=== PATIENT | male | born 1965 | race Caucasian/White ===

== ENCOUNTER 2018-02-12 14:09 | Emergency (ER) | payer BC ==
[2018-02-12] MEDS ORDERED: Tetan/Diph/Pertus SYR(Tdap)* 0.5 ML SYR(BOOSTRIX) use SYR IM ONE (14:24)
[2018-02-12] MEDS ORDERED: Lidocaine 2% EPI 1:200000 MPF*10-20 ML VIAL INJ ONE (14:31)
[2018-02-12] MEDS ORDERED: Bupivacaine 0.5% W/EPI SDV* 30 ML VIAL INJ ONE (14:31)
--- NOTE | 2018-02-12 14:34 | ED ---
Upper Extremity Pain - HPI Summary HPI Summary: The pt is a 52 year old M presenting to the ED with a chief complaint of a finger laceration. He and his were stacking wood and as she was throwing him a new piece of wood, he reached down and the wood fell on his finger. The pt has no other health issues. - History of Current Complaint Chief Complaint: EDLacSutureRecheck Stated Complaint: LT RING FINGER INJURY Time Seen by Provider: 02/12/18 14:27 Hx Obtained From: Patient Mechanism Of Injury: Blunt Trauma - wood log Onset/Duration: Started Hours Ago Timing: Constant Severity Initially: Moderate Severity Currently: Moderate Pain Location: Finger - L ring finger Character: Throbbing, Burning Aggravating Factor(s): Nothing Alleviating Factor(s): Nothing Associated Signs & Symptoms: Positive: Swelling, Redness, Other - bleeding - Allergies/Home Medications Allergies/Adverse Reactions: Allergies Allergy/AdvReac Type Severity Reaction Status Date / Time MS Penicillins [Penicillins] Allergy Nausea Verified 09/18/14 15:21 PMH/Surg Hx/FS Hx/Imm Hx Previously Healthy: Yes Endocrine/Hematology History: Denies: Hx Diabetes, Hx Thyroid Disease Cardiovascular History: Denies: Hx Hypertension Respiratory History: Denies: Hx Asthma, Hx Chronic Obstructive Pulmonary Disease (COPD) Infectious Disease History: No Infectious Disease History: Denies: Hx Hepatitis, Hx Human Immunodeficiency Virus (HIV), Traveled Outside the [place] in Last 30 Days - Family History Known Family History: Negative: Renal Disease - Social History Alcohol Use: Daily Substance Use Type: Reports: None Smoking Status (MU): Never Smoked Tobacco Review of Systems Negative: Fever Positive: Myalgia - L ring finger Positive: Other - bleeding L ring finger All Other Systems Reviewed And Are Negative: Yes Physical Exam - Summary Physical Exam Summary: Appearance: Well-appearing, Well-nourished, lying in bed comfortable Skin: L ring finger laceration at nail matrix, the matrix appears to be intact. Moderate sublingual hematoma, minimal swelling, tenderness of the distal phalanx. Eyes: sclera anicteric, no conjunctival pallor ENT: mucous membranes moist Neck: deferred Respiratory: No signs of respiratory distress Cardiovascular: Appears well perfused, pulses are nml Abdomen: deferred Musculoskeletal: Moving all 4 extremities without obvious discomfort Neurological: Awake and alert, mentation is normal, speech is fluent and appropriate Psychiatric: affect is normal, does not appear anxious or depressed Triage Information Reviewed: Yes Vital Signs On Initial Exam: Initial Vitals Temp Pulse Resp BP Pulse Ox 97.9 F 80 16 145/73 99 02/12/18 14:16 02/12/18 14:16 02/12/18 14:16 02/12/18 14:16 02/12/18 14:16 Vital Signs Reviewed: Yes Procedures - Procedure Summary Procedure Summary: The finger was given a digital block with a mix of 0.5% marcaine and 2% lidocaine with epinephrine. Following this the laceration was cleaned and soaked. The laceration was more of an avulsion of the skin just proximal to the nail matrix; it was not felt that the flap would hold sutures so the wound was dressed with tubegauze and splinted on both sides with an aluminum foam splint. Antibiotic prophylaxis was prescribed and pt was advised to contact the orthopedic surgeon for a followup visit and wound check in a few days. Diagnostics - Vital Signs Vital Signs Temp Pulse Resp BP Pulse Ox 02/12/18 14:16 97.9 F 80 16 145/73 99 - Laboratory Lab Statement: Any lab studies that have been ordered have been reviewed, and results considered in the medical decision making process. - Radiology L ring finger xray Radiology Interpretation Completed By: Radiologist Summary of Radiographic Findings: Comminuted fracture of the left ring finger distal tuft. Course/Dx - Course Course Of Treatment: The pt is a 52 y/o M presenting to the ED with a lacerated L ring finger. He was stacking wood with his and he reached down right when she threw another log to him, hitting his finger and cutting it open. The pt is stable and will be sent home without stitches. - Diagnoses Provider Diagnoses: Fracture, finger, distal phalanx, open Discharge - Sign-Out/Discharge Documenting (check all that apply): Patient Departure - Discharge Plan Condition: Stable Disposition: HOME Prescriptions: Cephalexin CAP* [Keflex CAP*] 500 mg PO QID #20 cap oxyCODONE/Acetamin 5/325 MG* [Percocet 5/325 TAB*] 2 tab PO Q4H PRN #8 tab MDD 4 tabs PRN Reason: Pain Patient Education Materials: Finger Fracture (ED) Referrals: Kelsi Squires MD [Medical Doctor] - 3 Days (for a recheck and further care, advice on splinting) - Billing Disposition and Condition Condition: STABLE Disposition: Home - Attestation Statements Document Initiated by Shereen: Yes Documenting Scribe: Alba Manriquez Provider For Whom Shereen is Documenting (Include Credential): Nelson Gómez MD. Scribe Attestation: Alba Johnston, scribed for Nelson Gómez MD. on 02/13/18 at 0728. Scribe Documentation Reviewed: Yes Provider Attestation: The documentation as recorded by the Alba chen accurately reflects the service I personally performed and the decisions made by , Nelson Gómez MD.
[2018-02-12] MEDS ORDERED: Cephalexin CAP* 500 MG PO ONE (15:14)
--- NOTE | 2018-02-12 15:24 | RAD ---
INDICATION: Crush injury and laceration to distal left ring finger COMPARISON: None. TECHNIQUE: 3 views of the left ring finger were obtained. FINDINGS: There is a comminuted minimally displaced fracture of the distal tuft of the left ring finger distal phalanx. Remaining visualized bones are intact and appropriately aligned. IMPRESSION: COMMINUTED FRACTURE OF THE LEFT RING FINGER DISTAL TUFT.
[2018-02-12 16:16] VITALS: BP 140/80
== END 2018-02-12 15:46 | disposition home or self-care (01) ==
LOC: ED 14:09
DX: S62.635B Displaced fracture of distal phalanx of left ring finger, initial encounter for open fracture (principal); W22.8XXA Striking against or struck by other objects, initial encounter; Y92.9 Unspecified place or not applicable
CPT/HCPCS: 73140; 90471; 90715; 96374; 96375; 99282; A9270-GY